=== PATIENT | female | born 1975 | race Caucasian/White ===

== ENCOUNTER → 2020-04-23 07:38 | Outpatient (BNVA) | payer BC, SELFPAY | PROVIDERS: PCP Family Medicine; Visit Provider Dietitian, Registered ==

== ENCOUNTER → 2022-04-03 11:58 | Outpatient (BNVA) | payer BC, SELFPAY | PROVIDERS: PCP Family Medicine; Visit Provider Physician Assistant Surgical | DX: E66.9 Obesity, unspecified (principal) ==

== ENCOUNTER 2024-08-31 14:15 | Outpatient (AMB) | payer BC, SELFPAY ==
--- NOTE | 2024-08-31 14:18 | MHC.OFFVISWM ---
VS Expanded 08/31/24 14:31 BP 110/63 Blood Pressure Location Rt brachial Blood Pressure Position Sitting Pulse 69 Pulse Source Pulse Oximeter Temp 97.6 F Temperature Source Temporal Artery Scan Pulse Oximetry 98 Oxygen Delivery Method Room Air Height 5 ft 6 in Weight 197 lb 6.4 oz BMI 31.9 Body Fat % 34.6 Body Fat Mass 68.4 Fat Free Mass 129.0 Visceral Fat Rating 8.0 Body Water % 46.5 Body Water Mass 91.8 Muscle Mass/Score 122.4 Basal Metabolic Rate/Score 1,745 Intake Visit Reasons: (OV) PO LSG 08/02/2018 * GLP-1* Inspector Paper Products Required: No Allergies No Known Allergies [No Known Allergies*] Allergy (Verified 08/31/24 14:28) Medication List - Last Reconciled 08/31/24 by KRAIG Elias escitalopram oxalate 10 mg PO DAILY tirzepatide (weight loss) (Zepbound) 2.5 mg (0.5 mL) subcut QWEEK HPI Comments Details: Patient is a pleasant 49-year-old female who returns to the office today in follow-up. She is approximately 6 years 1 month post sleeve gastrectomy performed on 08/02/2018. She was last seen in the office on 04/03/2022 with a weight of 179 lb and a BMI of 28.8. Weight today is 197.4 lb with a BMI of 31.9. No visits in the last couple of years. Just doing her own thing. She was doin ga regular meal and exercise plan but then had to help her daughter who had a leg injury and now here she is to try to get back on track . Enquiring about initiation of GLP 1 medication Meal plan: 2 Atkins bars and 1 herbalife shake 24 gm per 4 scoops and a meal per day not measuring, snacking on chips after work Exercise plan: nothing regularly Any post op complications: none NAVA: never DM: never HTN: never Hyperlipidemia: never GERD:?0-5 scale ??0 = no symptoms ??1 = symptoms noticeable but not bothersome 2 =symptoms bothersome but not daily ? 3 = symptoms bothersome and daily 4 = symptoms affect daily activities 5 = symptoms are incapacitating, unable to do daily activities ? How bad is the heartburn: 0 ? Heartburn while lying down: 0 ? Heartburn when standing up: 0 ? Heartburn after meals: 0 ? Does heartburn change your diet: 0 ? Does heartburn wake you up from sleep: 0 ? Do you have difficulty swallowin ? Do you have pain with swallowin ? If you take medicine for your reflux, does this affect your daily life: 0 Satisfaction with present condition - satisfied or not satisfied: dissatisfied PFSH Surgical History Hx of eye surgery History of back surgery Hx of bladder repair surgery Hx of anterior cruciate ligament surgery Family History Father Diabetes Mother Hypertension Social History Alcohol intake: never Patient Tobacco Use Status: Never used Tobacco Physical Exam Vital Signs: Last Vital Signs Temp 97.6 F 08/31/24 14:31 Pulse 69 08/31/24 14:31 BP 110/63 08/31/24 14:31 Pulse Ox 98 08/31/24 14:31 Oxygen Delivery Method Room Air 08/31/24 14:31 BMI result Body Mass Index 31.9 Const General: cooperative and no acute distress Orientation/consciousness: patient oriented x3 Resp Effort & Inspection: normal respiratory effort Auscultation: clear to auscultation bilaterally Cardio Rate: regular rate Rhythm: regular rhythm GI Inspection: Yes normal to inspection and Yes incision (well healed) Palpation (GI): Soft to palpation and no masses Neuro General: patient oriented x3 Assessment & Plan Assessment & Plan (1) Status post sleeve gastrectomy: Code(s): Z90.3 - Acquired absence of stomach [part of] Category: Surgical Plan: Check yearly postop labs Given information regarding right BMI Encouraged to initiate consistent exercise program Patient states that she is considering joining [employer]. Initiate Zepbound 2.5 mg subcutaneously weekly Patient advised of potential side effects and will alert provider to any noticeable increase in symptoms of depression or anxiety, tachycardia, constipation, nausea. Return to clinic 1 month Orders: Orders IRON PROFILE Today Z90.3 - Acquired absence of stomach [part of] Comprehensive Met. Panel Today Z90.3 - Acquired absence of stomach [part of] Zinc Today Z90.3 - Acquired absence of stomach [part of] Vitamin B1 Today Z90.3 - Acquired absence of stomach [part of] Vitamin A Today Z90.3 - Acquired absence of stomach [part of] TSH reflex Free T4 Today Z90.3 - Acquired absence of stomach [part of] Vitamin D 25-OH Total Today Z90.3 - Acquired absence of stomach [part of] Insulin Today Z90.3 - Acquired absence of stomach [part of] Hemoglobin A1c Today Z90.3 - Acquired absence of stomach [part of] Complete Blood Count Auto Diff Today Z90.3 - Acquired absence of stomach [part of] Lipid Panel Today Z90.3 - Acquired absence of stomach [part of] Vitamin B12 and Folate Today Z90.3 - Acquired absence of stomach [part of] C Reactive Protein Today Z90.3 - Acquired absence of stomach [part of] Ferritin Today Z90.3 - Acquired absence of stomach [part of] Medications: New tirzepatide (weight loss) (Zepbound) for 4 weeks 2.5 mg (0.5 mL) subcut QWEEK 2 mL 0RF
[2024-08-31 14:31] VITALS: BP 110/63; PULSE 69; TEMP 36.4; O2SAT 98; BMI 31.9
--- OUTSIDE RECORDS SUMMARY | 2024-08-31 16:50 | XMS_ITS | Clinical Summary ---
Author Organization [facility] [employer] [facility] lin Address [address] [place] [address] Care Team Providers Care Sample Washer Name Role Phone Pcp, No Primary Care Provider [phone] Social History Tobacco Use Types Packs/Day Years Used Date Smoking Tobacco: Never Assessed Comments Unknown Sex and Gender Information Value Date Recorded Sex Assigned at Not on file Legal Sex Female 9:52 AM EDT Gender Identity Not on file Sexual Orientation Not on file Plan of Treatment Health Maintenance Due Date Last Done Comments Colorectal Cancer: COLONOSCO PY Screening every 10 yrs (or Modifier) 1975 Depression: Screening Annual ly using PHQ-2/9 in Adults 18 yrs or above (or HM Modifier)([facility]) 1993 Hepatitis C Virus Infection in Adolescents and Adults: Screening (or Modifier) ([facility]) 1993 [facility] Screening Reminder: Caroline silvestre for all adults ([facility]) 1993 Tobacco Smoking Cessation: i n Adults excluding Women: Behavioral and Pharmacotherapy Interventions ([facility]) 1993 DTaP/Tdap/Td Vaccines ([facility]) (1 - Tdap) 1994 Cervical Cancer Screenin 1-65 yrs of age (or Modifier) 1996 Cervical Cancer Screening: P ap every 3 yrs pts age 21-65 1996 Cervical Cancer: Pap Screeni ng with Modifier timing ([facility]) 1996 Cervical Cancer: hrHPV alone or with cotesting Pap for Pts 30-65yrs screening every 5yrs ([facility]) 1996 Colorectal Cancer Screening 45 -75 Yrs (or HM Modifier) 2020 Colorectal Cancer: FLEXIBLE SIGMOIDOSCOPY Screening every 5 yrs 2020 Colorectal Cancer: Fecal Immunochemical Test (FIT) Annually [facility] 2020 Colorectal Cancer: High-sens itivity gFOBT Screening Annually [facility] 2020 Colorectal Cancer: Stool Col oguard Screening every 3 yrs 2020 Colorectal Cancer:CT Colonog jessica Screening every 5 yrs 2020 COVID-19 Vaccine Screening: Initial Series and Booster Status ([facility]) (2023- season) 2023 Flu Vaccination: Yearly for ages 18mos through 64 years (or Modifier)([facility]) 10/20/2024 Zoster/Shingles Vaccine Seri es Screening: Adults aged 18+ yrs (or HM Modifiers)([facility]) (1 of 2) 2025 Pneumococcal Vaccination Scr eening: Pts 0-19 & 19-49 yrs of age ([facility]) Aged Out No longer eligible based on patient's age to complete this topic Medical Devices Not on file Insurance [facility] Care Teams Sample Washer Relationship Specialty Start Date End Date Pcp, Chari PCP - General Family Medicine 10/09/20
== END 2024-08-31 15:00 | disposition home or self-care (01) ==
LOC: HO.HBS 14:16
PROVIDERS: PCP Family Medicine; Visit Provider Physician Assistant Surgical
DX: E66.9 Obesity, unspecified (principal); Z68.31 Body mass index [BMI] 31.0-31.9, adult; Z90.3 Acquired absence of stomach [part of]; Z98.84 Bariatric surgery status
CPT/HCPCS: 99214

== ENCOUNTER → 2024-08-31 14:15 | Outpatient (BNVA) | payer BC, SELFPAY | PROVIDERS: PCP Family Medicine; Visit Provider Physician Assistant Surgical | DX: Z13.89 Encounter for screening for other disorder (principal) ==

== ENCOUNTER 2024-10-06 11:12 | Outpatient (AMB) | payer BC, SELFPAY ==
--- NOTE | 2024-10-06 09:48 | A.OFFVIS_ITS ---
VS Expanded 10/06/24 09:49 Height 5 ft 6 in Weight 184 lb BMI 29.7 Body Fat % 24.9 Fat Free Mass 138.2 Visceral Fat Rating 12 Body Water % 51.6 Muscle Mass/Score 130 Basal Metabolic Rate/Score 1,725 Intake Visit Reasons: (TV) PO LSG 08/02/2018 * GLP-1* Client Support Consultant Required: No Allergies No Known Allergies (No Known Allergies*) Allergy (Verified 08/31/24 14:28) Medication List - Last Reconciled 10/06/24 by KRAIG Elias escitalopram oxalate 10 mg PO DAILY tirzepatide (weight loss) (Zepbound) 5 mg (0.5 mL) subcut QWEEK HPI Comments Details: Patient is a pleasant 49-year-old female who returns to the office today in follow-up. She is approximately 6 years 2 months post sleeve gastrectomy performed on 08/02/2018. She was seen in the office in August 2024 for the 1st time in several years. At that time her weight was 197.4 lb. She was prescribed Zepbound and given information regarding the [email or web address] puja. Weight today is 184 lb with a BMI of 29.7. She has lost 13.4 lb since reestablishing with the weight management program on 08/31/2024. She states that she is tolerating zepbound and finds it is helping her to reduce the cravings. Using Right BMI and states her goal is 73 gm protein per day. Meal plan: Herbalife (24 gm protein per shake) 8-12 3 barebells 20 gm protein or Atkins bar 16 gm Drinking 48-64 Exercise plan: walking outside 3-6 miles daily PFSH Surgical History Hx of eye surgery History of back surgery Hx of bladder repair surgery Hx of anterior cruciate ligament surgery Family History Father Diabetes Mother Hypertension Social History Alcohol intake: never Patient Tobacco Use Status: Never used Tobacco Telehealth Telehealth Telehealth Platform: Telephone Location of provider rendering services: practice address Location of patient: address on file Patient Identification confirmed using: Name, : Yes Telehealth method: voice only Patient verbally consented to treatment: Yes Patient verbally consented to billing insurance company: Yes Patient informed of any privacy concerns related to visit: Yes Minutes spent on Phone/Video with Pt.: 12 Assessment & Plan Assessment & Plan (1) Status post sleeve gastrectomy: Code(s): Z90.3 - Acquired absence of stomach [part of] Category: Surgical Plan: Patient is doing well. She is tolerating Zepbound. She has lost 13.4 lb since initiating returned to the weight management program. She is utilizing right BMI puja appropriately. Encouraged her to joined [employer] and incorporate weight training prior to cardio. She has not yet gotten the labs that were ordered. Indicate weekly and return to clinic 1 month.
[2024-10-06 09:49] VITALS: BMI 29.7
--- OUTSIDE RECORDS SUMMARY | 2024-10-06 11:43 | XMS_ITS | Clinical Summary ---
Author Organization [facility] [employer] [facility] lin Address [address] [place] [address] Care Team Providers Care Window Installer Name Role Phone Pcp, No Primary Care Provider [phone] Social History Tobacco Use Types Packs/Day Years [...] Adults 18 yrs or above (or HM Modifier)([facility]) 1993 Hepatitis C Virus Infection in Adolescents and Adults: Screening (or Modifier) ([facility]) 1993 [facility] Screening Reminder: Caroline silvestre for all adults ([facility]) 1993 Tobacco Smoking Cessation: i n Adults excluding Women: Behavioral and Pharmacotherapy Interventions ([facility]) 1993 DTaP/Tdap/Td Vaccines ([facility]) (1 - Tdap) 1994 Cervical Cancer Screenin 1-65 yrs of age (or Modifier) 1996 Cervical Cancer Screening: P ap every 3 yrs pts age 21-65 1996 Cervical Cancer: Pap Screeni ng with Modifier timing ([facility]) 1996 Cervical Cancer: hrHPV alone or with cotesting Pap for Pts 30-65yrs screening every 5yrs ([facility]) 1996 Colorectal Cancer Screening 45 -75 Yrs (or HM Modifier) 2020 Colorectal Cancer: FLEXIBLE SIGMOIDOSCOPY Screening every 5 yrs 2020 Colorectal Cancer: Fecal Immunochemical Test (FIT) Annually [facility] 2020 Colorectal Cancer: High-sens itivity gFOBT Screening Annually [facility] 2020 Colorectal Cancer: Stool Col oguard Screening every 3 yrs 2020 Colorectal Cancer:CT Colonog jessica Screening every 5 yrs 2020 COVID-19 Vaccine Screening: Initial Series and Booster Status ([facility]) (2023- season) 2023 Flu Vaccination: Yearly for ages 18mos through 64 years (or Modifier)([facility]) 10/20/2024 Zoster/Shingles Vaccine Seri es Screening: Adults aged 18+ yrs (or HM Modifiers)([facility]) (1 of 2) 2025 Pneumococcal Vaccination Scr eening: Pts 0-19 & 19-49 yrs of age ([facility]) Aged Out No longer eligible based on patient's age to complete this topic Medical Devices Not on file Insurance [facility] Care Teams Window Installer Relationship Specialty Start Date End Date Pcp, Chari PCP - General Family Medicine 10/09/20
--- OUTSIDE RECORDS SUMMARY | 2024-10-06 11:43 | XMS_ITS | Clinical Summary ---
Author Organization [facility] Address [address] [place] [address] Care Team Providers Care Dairy Bar Manager Name Role Phone Unavailable Primary Care Provider Unavailabl e Social History Tobacco Use Types Packs/Day Years Used Date Smoking Tobacco: Never Assessed Comments Unknown Sex and Gender Information Value Date Recorded Sex Assigned at Not on file Legal Sex Female 8:06 PM EDT Gender Identity Not on file Sexual Orientation Not on file Plan of Treatment Not on file
--- OUTSIDE RECORDS SUMMARY | 2024-10-06 11:43 | XMS_ITS | Clinical Summary ---
Author Organization [facility] Address [address] [place] [address] Phone Care Team Providers Care Chainsaw Mechanic Name Role Phone Parviz Reardon MD Primary Care Provider Allergies No known active allergies Medications buPROPion (WELLBUTRIN) 100 MG immediate release tablet Take 100 mg by mouth daily. Active sennosides (SENNA) 8.6 mg Cap Take by mouth nightly. Active acetaminophen (TYLENOL) 500 MG tablet Take 2 tablets (1,000 mg total) by mouth every 8 (eight) hours. 60 tablet 8 Active docusate sodium (COLACE) 100 MG capsule Take 1 capsule (100 mg total) by mouth 2 (two) times a day. 40 capsule 8 Active oxyCODONE 5 MG immediate release tablet Take 0.5-1 tablets (2.5-5 mg total) by mouth every 4 (four) hours as needed for moderate pain. Pt. may request partial fill. Take 2.5-5 mg every 4 hours as needed for moderate pain that is not controlled with Tylenol and motrin. wean off the narcotic by decreasing by one tablet daily -Do not drink alcohol, drive or operate heavy machinery while taking this medication - This medication can be addictive, wean off this medication. 30 tablet 8 Active cyclobenzaprine (FLEXERIL) 10 MG tablet Take 1 tablet (10 mg total) by mouth 3 (three) times a day as needed (muscle spasm). 20 tablet 8 Active Active Problems Problem Noted Date Diagnosed Date Lumbar herniated disc 02/21/2018 Migraine Overview (02/16/2018): infrequent relieved with tylenol Chronic constipation Overview (02/16/2018): on senna daily Adverse effect of anesthetic Overview (02/16/2018): delayed emergence with 1991 knee arthrocopy Foot drop, left Overview (02/16/2018): since May Family History Medical History Relation Comments Diabetes Father Heart disease Father Relation Status Comments Father Social History Tobacco Use Types Packs/Day Years Used Date Smoking Tobacco: Never Smokeless Tobacco: Never Alcohol Use Standard Drinks/Week Comments No 0 (1 standard drink = 0.6 oz pur e alcohol) Education Answer Date Recorded Are you interested in more education? Not on kvng e 07/17/2022 Are you concerned about learning? Not on file 07/17/2022 No 07/17/2022 No 07/17/2022 Digital Access Answer Date Recorded No 08/16/2022 No 08/16/2022 Reliable internet access at home? Not on file 08/16/2022 Device with a working camera? Not on file Comments Unknown Sex and Gender Information Value Date Recorded Sex Assigned at Not on file Legal Sex Female 12:48 PM EDT Gender Identity Not on file Sexual Orientation Not on file Last Filed Vital Signs Vital Sign Reading Time Taken Comments Blood Pressure 114/74 02/23/2018 8:26 AM EST Pulse 75 02/23/2018 8:26 AM EST Temperature 36.4 C (97.5 F) 07/21/2018 2:31 PM EDT Respiratory Rate 18 02/23/2018 8:26 AM EST Oxygen Saturation 99% 02/23/2018 8:26 AM EST Inhaled Oxygen Concentration - - Weight 115.7 kg (255 lb) 06/08/2018 7:31 PM EDT Height 167.6 cm (5' 6 ) 06/08/2018 7:31 PM EDT Body Mass Index 41.16 06/08/2018 7:31 PM EDT Plan of Treatment Health Maintenance Due Date Last Done Comments Adult Td,Tdap Booster 1975 LIPID PANEL 1975 DEPRESSION SCREENING 1987 HEPATITIS C SCREENING 1993 HIV ONE-TIME SCREENING (18-6 5 YEARS) 1993 PAP SMEAR 1996 MAMMOGRAM 2015 COLOGUARD 2020 COLONOSCOPY 2020 COLORECTAL CANCER SCREENING 2020 FIT TEST 2020 FOBT 2020 SIGMOIDOSCOPY 2020 VIRTUAL COLONOSCOPY 2020 COVID-19 VACCINE ( - 2023-2 5 season) 2023 03/20/2021, 05/17/2020, 04/19/2020 SMOKING STATUS SCREENING (On ce After 26 Yrs) Completed 02/21/2018 HEPATITIS A VACCINES Aged Out No long er eligible based on patient's age to complete this topic HIB VACCINES Aged Out No longer eligi ble based on patient's age to complete this topic MENINGOCOCCAL VACCINES (ACWY) Aged Out No longer eligible based on patient's age to complete this topic MENINGOCOCCAL VACCINES (B) Aged Out N o longer eligible based on patient's age to complete this topic PNEUMOCOCCAL VACCINES (0-49 years) Aged Out No longer eligible b ased on patient's age to complete this topic Medical Devices Not on file Insurance [facility] PPO EPO [facility] [place] [address] [place] [address] [place] [address] [place] [address] [place] [address] [address] [place] [address] [address] [place] [address] [address] [address] PPO EPO Advance Directives For more information, please contact: [phone] (9AM - 5PM [facility], Wednesday-Wednesday) * Full Code (Presumed) (Latest Code Status on File) Date Activated Date Inactivated Comments 02/21/2018 6:56 PM 02/23/2018 3:17 PM Care Teams Chainsaw Mechanic Relationship Specialty Start Date End Date Parviz Reardon MD [address] [place] [address] PCP - General Family Medicine 06/12/16 Additional Source Comments The information contained in this document represents components of the legal health record. It is not the complete legal health record.[facility]
== END 2024-10-06 11:25 | disposition home or self-care (01) ==
LOC: HO.HBS 11:12
PROVIDERS: PCP Family Medicine; Visit Provider Physician Assistant Surgical
DX: E66.3 Overweight (principal); Z68.29 Body mass index [BMI] 29.0-29.9, adult; Z90.3 Acquired absence of stomach [part of]; Z98.84 Bariatric surgery status
CPT/HCPCS: 98967

== ENCOUNTER → 2024-10-06 11:12 | Outpatient (BNVA) | payer BC, SELFPAY | PROVIDERS: PCP Family Medicine; Visit Provider Physician Assistant Surgical | DX: Z90.3 Acquired absence of stomach [part of] (principal) | CPT/HCPCS: 98967 ==

== ENCOUNTER 2024-11-10 11:09 | Outpatient (AMB) | payer BC, SELFPAY ==
[2024-11-10 08:08] VITALS: BMI 27.8
--- NOTE | 2024-11-10 08:08 | A.OFFVIS_ITS ---
VS Expanded 11/10/24 08:08 Height 5 ft 6 in Weight 172 lb BMI 27.8 Body Fat % 23.1 Fat Free Mass 132.2 Visceral Fat Rating 9 Body Water % 52.7 Muscle Mass/Score 124.4 Basal Metabolic Rate/Score 1,665 Intake Visit Reasons: (TV) PO LSG 08/02/2018 * GLP-1* Supervisor Plastics Required: No Allergies No Known Allergies (No Known Allergies*) Allergy (Verified 08/31/24 14:28) Medication List - Last Reconciled 11/10/24 by KRAIG Elias escitalopram oxalate 10 mg PO DAILY tirzepatide (weight loss) (Zepbound) 5 mg (0.5 mL) subcut QWEEK HPI Comments Details: Patient is a pleasant 49-year-old female who returns to the office today in follow-up. She is approximately 6 years 3 months post sleeve gastrectomy performed on 08/02/2018. She was seen in the office in August 2024 for the 1st time in several years. At that time her weight was 197.4 lb. She was prescribed Zepbound and given information regarding the [employer] puja. Weight today is 172 lb with a BMI of 27.8. She has lost 25.4 lb since reestablishing with the weight management program on 08/31/2024. She states that she is tolerating zepbound and finds it is helping her to reduce the cravings. Using Right BMI and Re calibrating her meal plan based on her weight weekly. Meal plan: Herbalife (15 gm protein per shake) 8-12 or scrambled egg or 4 forks protein 1/2 fulfill 15 gm protein or Atkins bar 16 gm 1-3 1 bar 4-6, 7-9 Drinking 48-64 Exercise plan: joined [employer] - stationary bike and weight training, 2-3 x per week. not tracking from the machine her calories walking outside 3-5 miles 2-3 x per week. PFSH Surgical History Hx of eye surgery History of back surgery Hx of bladder repair surgery Hx of anterior cruciate ligament surgery Family History Father Diabetes Mother Hypertension Social History Alcohol intake: never Patient Tobacco Use Status: Never used Tobacco Physical Exam Vital Signs: BMI result Body Mass Index 27.8 Telehealth Telehealth Telehealth Platform: Telephone Location of provider rendering services: practice address Location of patient: address on file Patient Identification confirmed using: Name, : Yes Telehealth method: voice only Patient verbally consented to treatment: Yes Patient verbally consented to billing insurance company: Yes Patient informed of any privacy concerns related to visit: Yes Minutes spent on Phone/Video with Pt.: 15 Assessment & Plan Assessment & Plan (1) Status post sleeve gastrectomy: Code(s): Z90.3 - Acquired absence of stomach [part of] Category: Surgical Plan: Patient is doing well, following the right BMI puja. encouraged to consistently increase her exercise such that she has burning 2000 calories or more per week. She will text with any questions or concerns. We will have her return to the office in 2 months. Zepbound has been renewed Medications: Refilled tirzepatide (weight loss) (Zepbound) 5 mg (0.5 mL) subcut QWEEK 2 mL 0RF
--- OUTSIDE RECORDS SUMMARY | 2024-11-10 11:13 | XMS_ITS | Clinical Summary ---
Author Organization [facility] Address [address] [place] [address] Care Team Providers Care Experimental Electronics Developer Name Role Phone Unavailable Primary Care Provider [...]
--- OUTSIDE RECORDS SUMMARY | 2024-11-10 11:13 | XMS_ITS | Clinical Summary ---
Author Organization [facility] Address [address] [place] [address] Phone Care Team Providers Care Sfdc Solution Architect Name Role Phone Parviz Reardon MD Primary [...] topic Medical Devices Not on file Insurance [facility] PPO EPO [facility] PPO [place] [address] [place] [address] [place] [address] [place] [address] [place] [address] [place] [address] [place] [place] [address] [place] [address] PPO EPO Advance Directives For more information, please contact: [phone] (9AM - 5PM [facility], Wednesday-Wednesday) * Full Code (Presumed) (Latest Code Status on File) Date Activated Date Inactivated Comments 02/21/2018 6:56 PM 02/23/2018 3:17 PM Care Teams Sfdc Solution Architect Relationship Specialty Start Date End Date Parviz Reardon MD [address] [place] [address] PCP - General Family Medicine 06/12/16 Additional Source Comments The information contained in this document represents components of the legal health record. It is not the complete legal health record.[facility]
== END 2024-11-10 11:12 | disposition home or self-care (01) ==
LOC: HO.HBS 11:09
PROVIDERS: PCP Family Medicine; Visit Provider Physician Assistant Surgical
DX: E66.3 Overweight (principal); Z68.27 Body mass index [BMI] 27.0-27.9, adult; Z90.3 Acquired absence of stomach [part of]; Z98.84 Bariatric surgery status
CPT/HCPCS: 98967

== ENCOUNTER → 2024-11-10 11:09 | Outpatient (BNVA) | payer BC, SELFPAY | PROVIDERS: PCP Family Medicine; Visit Provider Physician Assistant Surgical | DX: Z90.3 Acquired absence of stomach [part of] (principal); Z71.3 Dietary counseling and surveillance | CPT/HCPCS: 98967 ==

== ENCOUNTER 2025-01-29 10:14 | Outpatient (AMB) | payer BC, SELFPAY ==
[2025-01-29 10:12] VITALS: BMI 25.3
--- NOTE | 2025-01-29 10:12 | MHC.OFFVISWM ---
VS Expanded 01/29/25 10:12 Height 5 ft 6 in Weight 156 lb 8 oz BMI 25.3 Intake Visit Reasons: (TV) PO LSG 08/02/2018 * GLP-1* Allergies No Known Allergies (No Known Allergies*) Allergy (Verified 08/31/24 14:28) Medication List - Last Reconciled 01/29/25 by KRAIG Reyes escitalopram oxalate 10 mg PO DAILY tirzepatide (weight loss) (Zepbound) 7.5 mg (0.5 mL) subcut QWEEK HPI Comments Details: 49-year-old female who returns to the office today in follow-up. She is approximately 6 years 6 months post sleeve gastrectomy performed on 08/02/2018. She was seen in the office in August 2024 for the 1st time in several years. At that time her weight was 197.4 lb. She was prescribed Zepbound and given information regarding the [employer] [facility]. Weight today is 156.8 lb with a BMI of 25.3. She has lost 40.6 lb since reestablishing with the weight management program on 08/31/2024. She states that she is tolerating zepbound and finds it is helping her to reduce the cravings. Using [facility]. Was on aggressive [employer] [facility] plan but now following a plan with the option for food Meal plan: Herbalife (15 gm protein per shake) 8-12 or scrambled egg or 4 forks protein 1/2 fulfill 15 gm protein or Atkins bar 16 gm 1-3 1 bar 4-6, 7-9 Drinking 48-64oz Exercise plan: joined PF - stationary bike and weight training, 2-3 x per week. not tracking from the machine her calories walking outside 3-5 miles 2-3 x per week PFSH Surgical History Hx of eye surgery History of back surgery Hx of bladder repair surgery Hx of anterior cruciate ligament surgery Family History Father Diabetes Mother Hypertension Social History Alcohol intake: never Patient Tobacco Use Status: Never used Tobacco Telehealth Telehealth Telehealth Platform: Telephone Location of provider rendering services: other Location of patient: address on file Patient Identification confirmed using: Name, : Yes Telehealth method: voice only Patient verbally consented to treatment: Yes Patient verbally consented to billing insurance company: Yes Patient informed of any privacy concerns related to visit: Yes Minutes spent on Phone/Video with Pt.: 15 Assessment & Plan Assessment & Plan (1) Overweight: Code(s): E66.3 - Overweight Category: Medical (2) Status post sleeve gastrectomy: Code(s): Z90.3 - Acquired absence of stomach [part of] Category: Surgical Plan She is doing well on Zepbound and is close to healthy weight/BMI. Pt received a letter that her insurance is no longer covering Zepbound next calendar year. She would like to wean slightly for her last Rx prior to discontinuation of coverage. She will continue to text me weight measurements and refill requests. Labs previously ordered, still active, pt will have drawn. RTC 3-4 months for TV.
--- OUTSIDE RECORDS SUMMARY | 2025-01-29 12:01 | XMS_ITS | Clinical Summary ---
Author Organization [facility] Address [address] [place] [id number] Care Team Providers Care [employer] Supervisor Name Role Phone Unavailable Primary Care Provider [...]
== END 2025-01-29 10:22 | disposition home or self-care (01) ==
LOC: HO.HBS 10:14
PROVIDERS: PCP Family Medicine; Visit Provider Physician Assistant Surgical
DX: E66.3 Overweight (principal); Z68.25 Body mass index [BMI] 25.0-25.9, adult; Z90.3 Acquired absence of stomach [part of]; Z98.84 Bariatric surgery status
CPT/HCPCS: 98967